=== PATIENT | male | born 1975 | race Two or more races ===

== ENCOUNTER 2017-04-02 07:45 | Emergency (ER) | payer MEDICAID, OTHER ==
[~2017-04-02] VITALS: Ht 167.6 cm; Wt 71.6 kg
[2017-04-02 07:47] VITALS: BP 113/62
== END 2017-04-02 10:12 | disposition home or self-care (01) ==
LOC: ED 09:50
DX: G89.29 Other chronic pain (principal); M54.5 Low back pain
CPT/HCPCS: 99281

== ENCOUNTER → 2017-07-28 | Outpatient (CLI) | payer MEDICAID | END | disposition home or self-care (01) | LOC: CFH 14:24 | PROVIDERS: ATTEND Internal Medicine | DX: S49.92XA Unspecified injury of left shoulder and upper arm, initial encounter (principal); S49.91XA Unspecified injury of right shoulder and upper arm, initial encounter; X58.XXXA Exposure to other specified factors, initial encounter; Y93.89 Activity, other specified; Y92.89 Other specified places as the place of occurrence of the external cause; Y99.8 Other external cause status ==